=== PATIENT | male | born 1980 | race Caucasian/White ===

== ENCOUNTER 2019-11-23 22:22 | Emergency (ER) | payer OTHER ==
[~2019-11-23] VITALS: Ht 188 cm; Wt 83.9 kg
[2019-11-24 00:31] VITALS: BP 120/70
[2019-11-24 00:41] VITALS: BP 120/70
[2019-11-24] MEDS ORDERED: TRIPLE ANTIBIOTIC OINTMENT TP ONE (01:01)
--- NOTE | 2019-11-24 01:04 | ER.PDOC ---
General Chief Complaint: Requesting Medical Care Stated Complaint: LAC L HAND Time seen by MD: 01:01 Source: patient Exam Limitations: no limitations History of Present Illness Initial Comments Laceration to left hand with a screw machine hand. Occurred: just prior to arrival Where: home Severity: moderate Context: laceration Location of Injury: (L) hand Modifying Factors: pain on movement Past Medical History Medical History: no pertinent history Surgical History: no surgical history Social History Alcohol Use: occassionally Drug Use: none Review of Systems Constitutional: no symptoms reported Respiratory: no symptoms reported Cardiovascular: no symptoms reported Gastrointestinal: no symptoms reported Musculoskeletal: see HPI All Other Systems: Reviewed and Negative Physical Exam General Appearance: Alert, No Apparent Distress Hand: nml inspection, see diagram 1 - Lac Vascular: no vascular compromise Tendons: tendon function nml Forearm/Elbow/Arm: uninjured above wrist Head/ENT: nml inspection, pharynx nml Neck/Back: nml inspection, non-tender Resp/CVS: no resp distress, lungs clear, heart sounds nml, reg. rate & rhythm Abdomen: non-tender, no organomegaly ED LACERATION WOUND REPAIR # of Wounds/Lacerations Presen: 1 Wound Location & Length (Requi: Left hand Wound Length (cm): 3 Anesthesia: 1% Lidocaine Volume Anesthetic (ccs): 5 Wound's Depth, Shape: irregular Irrigated w/ Saline (ccs): 30 Suture Size/Type: 4:0, prolene Suture Style: interupted Number of Sutures: 4 Sterile Dressing Applied?: Yes Results/Orders Results/Orders Vital Signs Date Time Temp Pulse Resp B/P (MAP) Pulse Ox O2 Delivery O2 Flow Rate FiO2 11/24/19 00:41 97.6 74 18 11/24/19 00:31 97.6 74 18 96 Departure Time of Disposition: 01:03 Disposition: 01 HOME, SELF-CARE Impression: Primary Impression: Laceration of hand, left Condition: Stable Referrals: PCP,UNKNOWN (PCP) PRIMARY CARE PROVIDER Additional Instructions: Keflex Ibuprofen Remove sutures in 7 days at your PCP or ED Apply Neosporin daily Return to ED if any concerns. Duration or Time Spent with Pa: 30 min Problem Qualifiers Primary Impression: Laceration of hand, left Encounter type: initial encounter Foreign body presence: without foreign body Qualified Codes: S61.412A - Laceration without foreign body of left hand, initial encounter CHRISTIANO GASTELUM MD Nov 24, 2019 01:04
== END 2019-11-24 01:12 | disposition home or self-care (01) ==
LOC: ER 22:22
DX: S61.412A Laceration without foreign body of left hand, initial encounter (principal); W45.8XXA Other foreign body or object entering through skin, initial encounter; Y93.89 Activity, other specified; Y92.89 Other specified places as the place of occurrence of the external cause; Y99.8 Other external cause status
CPT/HCPCS: 12002; 99283